=== PATIENT | male | born 1965 ===

== ENCOUNTER 2018-05-27 21:56 | Observation (INO) | payer OTHER ==
[2018-05-27 22:08] VITALS: BMI 23.8
[2018-05-27] MEDS ORDERED: Sodium Chloride 0.9% 1,000 ML IV STA ×2 (22:36→23:08)
[2018-05-27 22:44] LABS: VENOUS BLOOD GAS BASE EXCESS -3.8 mmol/L (0.0-2.0); VENOUS BLOOD GAS PO2 72 mm/Hg (30-55); VENOUS BLOOD PH 7.48 (7.32-7.43)
[2018-05-27 22:46] LABS: BASO # 0.02 K/mm3 (0.0-2.0); BASO % 0.2 % (0.0-3.0); EOS # 0.1 (0.0-0.7); EOS % 1.4 % (1.5-5.0); GRAN # 5.14 (1.4-6.5); GRAN % 61.4 % (50.0-68.0); HEMOGLOBIN 14.6 g/dL (14.0-18.0); LYMPH # 2.7 (1.2-3.4); LYMPH % 32.3 % (22.0-35.0); MEAN CORPUSCULAR HEMOGLOBIN 29.8 pg (25.0-35.0); MEAN CORPUSCULAR HGB CONC 36.8 g/dl (31.0-37.0); MEAN PLATELET VOLUME 11.6 fl (7.0-11.0); MONO # 0.4 (0.1-0.6); MONO % 4.7 % (1.0-6.0); RBC 4.9 10^6/uL (3.5-6.1); RED CELL DISTRIBUTION WIDTH 11.7 % (11.5-14.5); WHITE BLOOD COUNT 8.4 10^3/uL (4.5-11.0)
--- NOTE | 2018-05-27 22:52 | ED PDOC ---
Arrival/HPI - General Chief Complaint: GI Problem Time Seen by Provider: 05/27/18 22:09 Historian: Patient - History of Present Illness Narrative History of Present Illness (Text): 05/27/18 22:49 52 year old male, whose past medical history includes diabetes, presents to the emergency department complaining of constipation and rectal bleeding that began today. Patient denies being on any blood thinners. Patient denies any fever, chills, chest pain, shortness of breath, nausea, vomiting, diarrhea, urinary symptoms, back pain, neck pain, headache, dizziness, or any other complaints. PMD: None Symptom Onset: Gradual Symptom Course: Unchanged Severity Level: Moderate Activities at Onset: Rest Context: Home Past Medical History - Provider Review Nursing Documentation Reviewed: Yes - Infectious Disease Hx of Infectious Diseases: None - Cardiac Hx Cardiac Disorders: No - Pulmonary Hx Respiratory Disorders: No - Neurological Hx Neurological Disorder: No - HEENT Hx HEENT Disorder: No - Renal Hx Renal Disorder: No - Endocrine/Metabolic Hx Endocrine Disorders: Yes Hx Diabetes Mellitus Type 2: Yes (niddm) - Hematological/Oncological Hx Blood Disorders: No - Integumentary Hx Dermatological Disorder: No - Musculoskeletal/Rheumatological Hx Musculoskeletal Disorders: No - Gastrointestinal Hx Gastrointestinal Disorders: No - Genitourinary/Gynecological Hx Genitourinary Disorders: No - Psychiatric Hx Psychophysiologic Disorder: No Hx Substance Use: No - Anesthesia Hx Anesthesia: No - Suicidal Assessment Feels Threatened In Home Enviroment: No Family/Social History - Physician Review Nursing Documentation Reviewed: Yes Family/Social History: No Known Family HX Smoking Status: Light Smoker < 10 Cigarettes Daily Hx Alcohol Use: Yes Hx Substance Use: No Hx Substance Use Treatment: No Allergies/Home Meds Allergies/Adverse Reactions: Allergies No Known Allergies Allergy (Verified 04/19/15 18:30) Review of Systems - Physician Review All systems were reviewed & negative as marked: Yes - Review of Systems Constitutional: absent: Fevers, Other (Chills) Respiratory: absent: SOB Cardiovascular: absent: Chest Pain Gastrointestinal: Constipation, Hematochezia. absent: Abdominal Pain, Diarrhea, Nausea Musculoskeletal: absent: Back Pain, Neck Pain Neurological: absent: Headache, Dizziness Physical Exam Vital Signs Reviewed: Yes Vital Signs Temp Pulse Resp BP Pulse Ox 05/27/18 22:07 97.9 F 128 H 20 133/87 98 Temperature: Afebrile Blood Pressure: Normal Pulse: Tachycardic Respiratory Rate: Normal Appearance: Positive for: Well-Appearing, Non-Toxic, Comfortable Pain Distress: None Mental Status: Positive for: Alert and Oriented X 3 - Systems Exam Head: Present: Atraumatic, Normocephalic Pupils: Present: PERRL Extroacular Muscles: Present: EOMI Conjunctiva: Present: Normal Mouth: Present: Moist Mucous Membranes Neck: Present: Normal Range of Motion Respiratory/Chest: Present: Clear to Auscultation, Good Air Exchange. No: Respiratory Distress, Accessory Muscle Use Cardiovascular: Present: Tachycardic. No: Murmurs Abdomen: Present: Tenderness (to palpation). No: Distention, Peritoneal Signs Rectal: Present: Hemorrhoids ((+)Palpable internal hemmorrhoid at 6 o'clock (- )No external thrombosed hemmorrhoids ), Other (Painful insertion to finger within rectal volt. Guaiac test positive) Back: Present: Normal Inspection Upper Extremity: Present: Normal Inspection. No: Cyanosis, Edema Lower Extremity: Present: Normal Inspection. No: Edema Neurological: Present: GCS=15, CN II-XII Intact, Speech Normal Skin: Present: Warm, Dry, Normal Color. No: Rashes Psychiatric: Present: Alert, Oriented x 3, Normal Insight, Normal Concentration Medical Decision Making ED Course and Treatment: 05/27/18 22:49 Impression: 52 year old male presents complaining of constipation and rectal bleeding that began today. Differential Diagnosis included but are not limited to: --Rectal bleeding Plan: -- Labs -- VBG -- Chest X-ray -- Urinalysis -- IV Fluids -- Reassess and disposition Progress Notes: 05/27/18 23:13 Case discussed with medical records assistant and Dr. Morgan (house staff)who is aware and agrees with the plan. Accepts patient into hospitalist service. - Lab Interpretations Lab Results: 05/27/18 22:39 05/27/18 22:39 Lab Results 05/27/18 22:39: pO2 72 H, VBG pH 7.48 H, VBG pCO2 24.0 L, VBG HCO3 17.9 L, VBG Total CO2 18.6 L, VBG O2 Sat (Calc) 97.4 H, VBG Base Excess -3.8 L, VBG Potassium 3.6, Sodium 136.0, Chloride 101.0, Glucose 445 H*, Lactate 3.7 H, FiO2 21.0, Venous Blood Potassium 3.6 05/27/18 22:39: Sodium 136, Chloride 104, Potassium 3.6, Carbon Dioxide 17 L, Anion Gap 18, BUN 15, Creatinine 0.8, Est GFR ( Amer) > 60, Est GFR (Non- Af Amer) > 60, Random Glucose 433 H* D, Calcium 9.3, Total Bilirubin 0.6, AST 31, ALT 14, Alkaline Phosphatase 125, Troponin I < 0.01, Total Protein 7.7, Albumin 4.3, Globulin 3.5, Albumin/Globulin Ratio 1.2, Lipase 144 05/27/18 22:39: PT 10.8, INR 0.95, APTT 25.2 05/27/18 22:39: WBC 8.4, RBC 4.90, Hgb 14.6, Hct 39.7 L, MCV 81.0, MCH 29.8, MCHC 36.8, RDW 11.7, Plt Count 193, MPV 11.6 H, Gran % 61.4, Lymph % (Auto) 32.3, [place] % (Auto) 4.7, Eos % (Auto) 1.4 L, Baso % (Auto) 0.2, Gran # 5.14, Lymph # (Auto) 2.7, [place] # (Auto) 0.4, Eos # (Auto) 0.1, Baso # (Auto) 0.02 05/27/18 22:30: Blood Type O POSITIVE, Antibody Screen Negative, BBK History Checked No verified bt I have reviewed the lab results: Yes - RAD Interpretation Narrative RAD Interpretations (Text): 05/27/18 23:00 CXR Impression: As read by me, no cardiomegaly, no infiltrates noted Radiology Orders: 05/27/18 22:35 CHEST PORTABLE [RAD] Stat Cell Operation Supervisor: ED Physician - EKG Interpretation EKG Interpretation (Text): 05/27/18 22:09 EKG shows Sinus Tachycardia at [address] depressions. Interpreted by me. Interpreted by ED Physician: Yes Type: 12 lead EKG - Medication Orders Current Medication Orders: Sodium Chloride (Sodium Chloride 0.9%) 1,000 mls @ 999 mls/hr IV .Q1H1M STA Stop: 05/27/18 23:36 Last Admin: 05/27/18 22:43 Dose: 999 mls/hr eMAR Start Stop Document 05/27/18 22:43 CNR (Rec: 05/27/18 22:43 CNR [id number]) Intravenous Solution Start Date 05/27/18 Start Time 21:43 End Date 05/27/18 End time 22:43 Total Infusion Time 60 - Scribe Statement The provider has reviewed the documentation as recorded by the Jake Lo Provider Scribe Attestation: All medical record entries made by the Jake were at my direction and personally dictated by me. I have reviewed the chart and agree that the record accurately reflects my personal performance of the history, physical exam, medical decision making, and the department course for this patient. I have also personally directed, reviewed, and agree with the discharge instructions and disposition. Disposition/Present on Arrival - Present on Arrival Any Indicators Present on Arrival: No History of DVT/PE: No History of Uncontrolled Diabetes: No Urinary Catheter: No History of Decub. Ulcer: No History Surgical Site Infection Following: None - Disposition Have Diagnosis and Disposition been Completed?: Yes Diagnosis: Rectal bleed, Hyperglycemia Disposition: HOSPITALIZED Disposition Time: 23:13 Patient Plan: Admission Condition: GOOD
[2018-05-27 22:53] LABS: INR 0.95; PARTIAL THROMBOPLASTIN TIME 25.2 Seconds (25.1-36.5); PROTHROMBIN TIME 10.8 SECONDS (9.4-12.5)
[2018-05-27 23:06] LABS: ALB/GLOB RATIO 1.2 (1.1-1.8); ALBUMIN 4.3 g/dL (3.0-4.8); ALT/SGPT 14 U/L (7-56); AST/SGOT 31 U/L (17-59); BLOOD UREA NITROGEN 15 mg/dL (7-21); CALCIUM 9.3 mg/dL (8.4-10.5); GFR NON-AFRICAN AMERICAN > 60; LIPASE 144 U/L (23-300)
[2018-05-27] MEDS ORDERED: Insulin Regular 1 UNITS/0.01 ML ML SC STA (23:07)
[2018-05-27 23:10] LABS: TROPONIN I < 0.01 ng/mL
--- NOTE | 2018-05-28 01:24 | CP.PCM.HP ---
<Dayne Ricardo - Last Filed: 05/28/18 05:24> History of Present Illness - History of Present Illness History of Present Illness: Dayne Ricardo DO PGY1. H&P Hospitalist Service, Dr Eddie Lopez: bleeding per rectum 52 y/o male with PMH of diabetes presents to ED with one episode of bright blood per rectum for the first time yesterday which was moderate amount. He denied constipation, change of bowel movement, N/V/D, GERD, NSAID use, constitutional symptoms, weight changes, history of hemorrhoids or any GI disease. He never had colonscopy or EGD in the past with no history of cancer. Patient admits to being diagnosed with DM few years ago but he did not take any meds for it. He denied polyphagia, polydipsea, excessive thirst, numbness/tingling in his extremities, muscle weakness. He admits to visual changes and having poor circulation in b/l lower extremity. He can walk for an hour without having calf muscle pain or SOB. He denied CP, SOB, palpitations, headache, leg swelling, exercise intolerance or dyspnea. 12 point ROS reviewed with pertinent positives as above PMH: HTN, DM, HLD, memory loss PSH: none SH: former smoker, denied alcohol or drug use FH: father and mother had diabetes All:NKDA Meds: none Present on Admission - Present on Admission Any Indicators Present on Admission: No Past Patient History - Infectious Disease Hx of Infectious Diseases: None - Past Social History Smoking Status: Light Smoker < 10 Cigarettes Daily - CARDIAC Hx Cardiac Disorders: No - PULMONARY Hx Respiratory Disorders: No - NEUROLOGICAL Hx Neurological Disorder: No - HEENT Hx HEENT Problems: No - RENAL Hx Chronic Kidney Disease: No - ENDOCRINE/METABOLIC Hx Endocrine Disorders: Yes Hx Diabetes Mellitus Type 2: Yes (niddm) - HEMATOLOGICAL/ONCOLOGICAL Hx Blood Disorders: No - INTEGUMENTARY Hx Dermatological Problems: No - MUSCULOSKELETAL/RHEUMATOLOGICAL Hx Musculoskeletal Disorders: No - GASTROINTESTINAL Hx Gastrointestinal Disorders: No - GENITOURINARY/GYNECOLOGICAL Hx Genitourinary Disorders: No - PSYCHIATRIC Hx Psychophysiologic Disorder: No - SURGICAL HISTORY Hx Surgeries: No - ANESTHESIA Hx Anesthesia: No Meds Allergies/Adverse Reactions: Allergies Allergy/AdvReac Type Severity Reaction Status Date / Time No Known Allergies Allergy Verified 04/19/15 18:30 Physical Exam - Constitutional Appears: Well, Non-toxic, No Acute Distress - Head Exam Head Exam: ATRAUMATIC, NORMAL INSPECTION, NORMOCEPHALIC - Eye Exam Eye Exam: EOMI, Normal appearance, PERRL Pupil Exam: NORMAL ACCOMODATION, PERRL - ENT Exam ENT Exam: Mucous Membranes Moist, Normal Exam Additional comments: multiple teeth loss - Neck Exam Neck exam: Positive for: Normal Inspection - Respiratory Exam Respiratory Exam: Clear to Auscultation Bilateral, NORMAL BREATHING PATTERN - Cardiovascular Exam Cardiovascular Exam: REGULAR RHYTHM, +S1, +S2. absent: Gallop, Rubs - GI/Abdominal Exam GI & Abdominal Exam: Normal Bowel Sounds, Soft. absent: Tenderness - Extremities Exam Extremities exam: Positive for: normal capillary refill, normal inspection, pedal pulses present - Back Exam Back exam: FULL ROM, NORMAL INSPECTION. absent: CVA tenderness (L), CVA tenderness (R), vertebral tenderness - Neurological Exam Neurological exam: Alert, CN II-XII Intact, Oriented x3, Reflexes Normal - Psychiatric Exam Psychiatric exam: Normal Affect, Normal Mood - Skin Skin Exam: Dry, Intact, Normal Color, Warm Results - Vital Signs Recent Vital Signs: Last Vital Signs Temp 97.9 F 05/27/18 22:07 Pulse 98 H 05/28/18 00:03 Resp 16 05/28/18 00:03 BP 126/77 05/28/18 00:03 Pulse Ox 97 05/28/18 00:03 - Labs Result Diagrams: 05/27/18 22:39 05/27/18 22:39 Labs: Laboratory Results - last 24 hr 05/27/18 05/27/18 05/27/18 22:39 22:39 22:39 WBC 8.4 RBC 4.90 Hgb 14.6 Hct 39.7 L MCV 81.0 MCH 29.8 MCHC 36.8 RDW 11.7 Plt Count 193 MPV 11.6 H Gran % 61.4 Lymph % (Auto) 32.3 [place] % (Auto) 4.7 Eos % (Auto) 1.4 L Baso % (Auto) 0.2 Gran # 5.14 Lymph # (Auto) 2.7 [place] # (Auto) 0.4 Eos # (Auto) 0.1 Baso # (Auto) 0.02 PT 10.8 INR 0.95 APTT 25.2 pO2 VBG pH VBG pCO2 VBG HCO3 VBG Total CO2 VBG O2 Sat (Calc) VBG Base Excess VBG Potassium Sodium 136 Chloride 104 Glucose Lactate FiO2 Potassium 3.6 Carbon Dioxide 17 L Anion Gap 18 BUN 15 Creatinine 0.8 Est GFR ( Amer) > 60 Est GFR (Non-Af Amer) > 60 Random Glucose 433 H* D Calcium 9.3 Total Bilirubin 0.6 AST 31 ALT 14 Alkaline Phosphatase 125 Troponin I < 0.01 Total Protein 7.7 Albumin 4.3 Globulin 3.5 Albumin/Globulin Ratio 1.2 Lipase 144 Venous Blood Potassium 05/27/18 22:39 WBC RBC Hgb Hct MCV MCH MCHC RDW Plt Count MPV Gran % Lymph % (Auto) [place] % (Auto) Eos % (Auto) Baso % (Auto) Gran # Lymph # (Auto) [place] # (Auto) Eos # (Auto) Baso # (Auto) PT INR APTT pO2 72 H VBG pH 7.48 H VBG pCO2 24.0 L VBG HCO3 17.9 L VBG Total CO2 18.6 L VBG O2 Sat (Calc) 97.4 H VBG Base Excess -3.8 L VBG Potassium 3.6 Sodium 136.0 Chloride 101.0 Glucose 445 H* Lactate 3.7 H FiO2 21.0 Potassium Carbon Dioxide Anion Gap BUN Creatinine Est GFR ( Amer) Est GFR (Non-Af Amer) Random Glucose Calcium Total Bilirubin AST ALT Alkaline Phosphatase Troponin I Total Protein Albumin Globulin Albumin/Globulin Ratio Lipase Venous Blood Potassium 3.6 Assessment & Plan - Assessment and Plan (Free Text) Assessment: 52 y/o male with PMH of diabetes presents to ED with one episode of bright blood per rectum. He was found to have hyperglycemia of 433 and tachycardia. Patient admitted to telemetry for observation. Plan: Bright red Bleeding per rectum: -first episode, no h/o constipation, hemodynamically stable -H/H 14.6/39.7 continue monitoring -f/u iron studies, folate, B12 -surgery consulted -GI consulted Hyperglycemia: -remote diagnosis of DM, not on meds -BG 445 on admission -VBG: pH 7.48 CO2 24 HCO3 17 -accucheck -ISS low -f/u Hgb A1C, lipid panel, TSH, UA -euglycemic control Prophylaxis: -GI ppx: protonix -DVT ppx: SCD Case reviewed and paln discussed with Dr Eddie Ricardo, DO PGY1 <Ban Morgan - Last Filed: 05/30/18 14:26> Results - Vital Signs Recent Vital Signs: Last Vital Signs Temp 97.9 F 05/29/18 12:00 Pulse 80 05/29/18 12:00 Resp 18 05/29/18 12:00 BP 122/82 05/29/18 12:00 Pulse Ox 100 05/29/18 05:45 - Labs Result Diagrams: 05/29/18 06:00 05/29/18 06:00 Attending/Attestation - Attestation I have personally seen and examined this patient.: Yes I have fully participated in the care of the patient.: Yes I have reviewed all pertinent clinical information: Yes
[2018-05-28] MEDS ORDERED: Levalbuterol 0.63 MG/3 ML Inhal Soln UD IH PRN (02:33)
[2018-05-28] MEDS ORDERED: Pneumococcal 23-Valent Vaccine IM ONE (02:57)
[2018-05-28 03:16] LABS: VENOUS BLOOD GAS BASE EXCESS -1.1 mmol/L (0.0-2.0); VENOUS BLOOD GAS PO2 64 mm/Hg (30-55)
[2018-05-28] MEDS: Pantoprazole 40 mg EC Tab PO SCH (05:29)
[2018-05-28] MEDS ORDERED: Dextrose 50% SYRINGE Inj (50 ml) IV PRN (06:34)
[2018-05-28] MEDS ORDERED: Sodium Chloride 0.9% 1,000 ML IV SCH (06:45)
[2018-05-28] MEDS ORDERED: Insulin Reg-LOW-Coverage SC SCH (07:30)
--- NOTE | 2018-05-28 07:47 | CP.PCM.CON ---
History of Present Illness - History of Present Illness History of Present Illness: 52M with PMH of HTN, DM, hyperlipidemia, [place] to [facility] with complaints of bright red blood per rectum. Patient states first time it occured was yesterday. Patient reports being constipated and had to strain to have BM. Patient reports noting blood streaks on toilet paper. 30 minutes afterwards patient states he went back to the bathroom and had a large bloody bowel movement. He states this is the first time he experiences this. Patient has never had a colonoscopy/endoscopy. At time of examination he denied dizziness, chest pain, palpitations, SOB, nausea/vomiting, diarrhea, dysuria. PMH: HTN, DM, HLD, PSH: denies SH: former smoker, denied EtOH use or illicit drug use All: NKDA Review of Systems - Review of Systems Review of Systems: 10 pt ROS negative except as stated in HPI Past Patient History - Infectious Disease Hx of Infectious Diseases: None - Past Social History Smoking Status: Light Smoker < 10 Cigarettes Daily - CARDIAC Hx Cardiac Disorders: No - PULMONARY Hx Respiratory Disorders: No - NEUROLOGICAL Hx Neurological Disorder: No - HEENT Hx HEENT Problems: No - RENAL Hx Chronic Kidney Disease: No - ENDOCRINE/METABOLIC Hx Endocrine Disorders: Yes Hx Diabetes Mellitus Type 2: Yes (niddm) - HEMATOLOGICAL/ONCOLOGICAL Hx Blood Disorders: No - INTEGUMENTARY Hx Dermatological Problems: No - MUSCULOSKELETAL/RHEUMATOLOGICAL Hx Musculoskeletal Disorders: No - GASTROINTESTINAL Hx Gastrointestinal Disorders: No - GENITOURINARY/GYNECOLOGICAL Hx Genitourinary Disorders: No - PSYCHIATRIC Hx Psychophysiologic Disorder: No - SURGICAL HISTORY Hx Surgeries: No - ANESTHESIA Hx Anesthesia: No Meds Allergies/Adverse Reactions: Allergies Allergy/AdvReac Type Severity Reaction Status Date / Time No Known Allergies Allergy Verified 04/19/15 18:30 - Medications Medications: Current Medications Dextrose (Dextrose 50% Inj) 0 ml IV STAT PRN; Protocol PRN Reason: Hypoglycemia Protocol Dextrose (Dextrose 5% In Water 1000 Ml) 1,000 mls @ 0 mls/hr IV .Q0M PRN; Protocol PRN Reason: Hypoglycemia Protocol Sodium Chloride (Sodium Chloride 0.9%) 1,000 mls @ 150 mls/hr IV .Q6H40M SAIGE Insulin Human Regular (Humulin R Low) 0 units SC Q6H SAIGE; Protocol Levalbuterol HCl (Xopenex) 0.63 mg IH [id number] PRN PRN Reason: Shortness of Breath Pantoprazole Sodium (Protonix Ec Tab) 40 mg PO 0600 SAIGE Last Admin: 05/28/18 05:29 Dose: 40 mg Physical Exam - Constitutional Appears: No Acute Distress - Head Exam Head Exam: NORMOCEPHALIC - Eye Exam Eye Exam: EOMI, Normal appearance - ENT Exam ENT Exam: Mucous Membranes Moist - Respiratory Exam Respiratory Exam: NORMAL BREATHING PATTERN - Cardiovascular Exam Cardiovascular Exam: +S1, +S2 - GI/Abdominal Exam GI & Abdominal Exam: Soft. absent: Distended, Firm, Guarding, Rebound, Rigid, Tenderness - Rectal Exam Rectal Exam: absent: Hemorrhoids Additional comments: No mass palpated Small clots in rectal vault No external/internal hemorrhoids palpated - Neurological Exam Neurological exam: Alert, Oriented x3 - Psychiatric Exam Psychiatric exam: Normal Mood - Skin Skin Exam: Dry, Intact, Warm Results - Vital Signs Recent Vital Signs: Last Vital Signs Temp 98.7 F 05/28/18 06:37 Pulse 88 05/28/18 06:37 Resp 20 05/28/18 06:37 BP 104/73 05/28/18 06:37 Pulse Ox 98 05/28/18 06:37 - Labs Result Diagrams: 05/27/18 22:39 05/27/18 22:39 Labs: Laboratory Results - last 24 hr 05/27/18 05/27/18 05/27/18 22:30 22:39 22:39 WBC 8.4 RBC 4.90 Hgb 14.6 Hct 39.7 L MCV 81.0 MCH 29.8 MCHC 36.8 RDW 11.7 Plt Count 193 MPV 11.6 H Gran % 61.4 Lymph % (Auto) 32.3 [place] % (Auto) 4.7 Eos % (Auto) 1.4 L Baso % (Auto) 0.2 Gran # 5.14 Lymph # (Auto) 2.7 [place] # (Auto) 0.4 Eos # (Auto) 0.1 Baso # (Auto) 0.02 PT 10.8 INR 0.95 APTT 25.2 pO2 VBG pH VBG pCO2 VBG HCO3 VBG Total CO2 VBG O2 Sat (Calc) VBG Base Excess VBG Potassium Sodium Chloride Glucose Lactate FiO2 Potassium Carbon Dioxide Anion Gap BUN Creatinine Est GFR ( Amer) Est GFR (Non-Af Amer) POC Glucose (mg/dL) Random Glucose Calcium Total Bilirubin AST ALT Alkaline Phosphatase Troponin I Total Protein Albumin Globulin Albumin/Globulin Ratio Lipase Venous Blood Potassium Blood Type O POSITIVE Blood Type Confirm Antibody Screen Negative BBK History Checked No verified bt 05/27/18 05/27/18 05/28/18 22:39 22:39 00:00 WBC RBC Hgb Hct MCV MCH MCHC RDW Plt Count MPV Gran % Lymph % (Auto) [place] % (Auto) Eos % (Auto) Baso % (Auto) Gran # Lymph # (Auto) [place] # (Auto) Eos # (Auto) Baso # (Auto) PT INR APTT pO2 72 H VBG pH 7.48 H VBG pCO2 24.0 L VBG HCO3 17.9 L VBG Total CO2 18.6 L VBG O2 Sat (Calc) 97.4 H VBG Base Excess -3.8 L VBG Potassium 3.6 Sodium 136 136.0 Chloride 104 101.0 Glucose 445 H* Lactate 3.7 H FiO2 21.0 Potassium 3.6 Carbon Dioxide 17 L Anion Gap 18 BUN 15 Creatinine 0.8 Est GFR ( Amer) > 60 Est GFR (Non-Af Amer) > 60 POC Glucose (mg/dL) 299 H Random Glucose 433 H* D Calcium 9.3 Total Bilirubin 0.6 AST 31 ALT 14 Alkaline Phosphatase 125 Troponin I < 0.01 Total Protein 7.7 Albumin 4.3 Globulin 3.5 Albumin/Globulin Ratio 1.2 Lipase 144 Venous Blood Potassium 3.6 Blood Type Blood Type Confirm Antibody Screen BBK History Checked 05/28/18 05/28/18 03:00 03:00 WBC RBC Hgb Hct MCV MCH MCHC RDW Plt Count MPV Gran % Lymph % (Auto) [place] % (Auto) Eos % (Auto) Baso % (Auto) Gran # Lymph # (Auto) [place] # (Auto) Eos # (Auto) Baso # (Auto) PT INR APTT pO2 64 H VBG pH 7.40 VBG pCO2 38.0 L VBG HCO3 23.5 VBG Total CO2 24.7 VBG O2 Sat (Calc) 94.3 H VBG Base Excess -1.1 L VBG Potassium 3.8 Sodium 138.0 Chloride 109.0 H Glucose 183 H Lactate 1.3 FiO2 21.0 Potassium Carbon Dioxide Anion Gap BUN Creatinine Est GFR ( Amer) Est GFR (Non-Af Amer) POC Glucose (mg/dL) Random Glucose Calcium Total Bilirubin AST ALT Alkaline Phosphatase Troponin I Total Protein Albumin Globulin Albumin/Globulin Ratio Lipase Venous Blood Potassium 3.8 Blood Type Blood Type Confirm O POSITIVE Antibody Screen BBK History Checked Assessment & Plan - Assessment and Plan (Free Text) Assessment: 52M with BRBPR likely 2/2 diverticulosis Plan: NPO IVF F/u CT Abd&Pelvis Recommend GI consult Monitor H/H Monitor BM Further recs per Dr. Devonte Drake PGY3
[2018-05-28] MEDS: Insulin Reg-LOW-Coverage SC SCH ×3 (08:07→17:46)
[2018-05-28] MEDS ORDERED: Iohexol 240 (50 ml) ONE (08:11)
[2018-05-28 09:06] LABS: BASO # 0.01 K/mm3 (0.0-2.0); BASO % 0.2 % (0.0-3.0); EOS # 0.1 (0.0-0.7); EOS % 1.5 % (1.5-5.0); GRAN # 3.6 (1.4-6.5); GRAN % 55.5 % (50.0-68.0); HEMOGLOBIN 12.2 g/dL (14.0-18.0); LYMPH # 2.4 (1.2-3.4); LYMPH % 37.3 % (22.0-35.0); MEAN CELL VOLUME 81.8 fl (80.0-105.0); MEAN CORPUSCULAR HEMOGLOBIN 28.8 pg (25.0-35.0); MEAN CORPUSCULAR HGB CONC 35.3 g/dl (31.0-37.0); MEAN PLATELET VOLUME 11.6 fl (7.0-11.0); MONO # 0.4 (0.1-0.6); MONO % 5.5 % (1.0-6.0); RBC 4.23 10^6/uL (3.5-6.1); RED CELL DISTRIBUTION WIDTH 11.9 % (11.5-14.5); WHITE BLOOD COUNT 6.5 10^3/uL (4.5-11.0)
[2018-05-28 09:13] LABS: IRON 104 ug/dL (45-180)
[2018-05-28 09:21] LABS: ALB/GLOB RATIO 1.2 (1.1-1.8); ALBUMIN 3.5 g/dL (3.0-4.8); ALT/SGPT 26 U/L (7-56); AST/SGOT 17 U/L (17-59); BLOOD UREA NITROGEN 11 mg/dL (7-21); CALCIUM 8.4 mg/dL (8.4-10.5); GFR NON-AFRICAN AMERICAN > 60; HDL CHOLESTEROL 29 mg/dL (29-60)
[2018-05-28 09:22] LABS: LDL CHOLESTEROL 100 mg/dL (0-129)
[2018-05-28 09:23] LABS: % IRON SATURATION 33 % (20-55); TOTAL IRON BINDING CAPACITY 318 ug/dL (261-462)
--- NOTE | 2018-05-28 09:23 | CARD ---
APPROVED REPORT Date of service: 05/27/2018 EKG Measurement Heart [id number] <Conclusion> Sinus tachycardia Otherwise normal ECG
--- NOTE | 2018-05-28 09:43 | CP.PCM.CON ---
<LulSlimike - Last Filed: 05/28/18 09:37> History of Present Illness - History of Present Illness History of Present Illness: PGY-4 GI Fellow Consult Note Pt is a 52 yo Hisp Male with DM (not on meds), HTN, HLD presenting with bright red blood per rectum. He states that he was in his normal state of health when on 05/27 he passed moderate amount of bright red blood per rectum. States that he has never had this before which concerned him; therefore, he presented for further evaluation. He denied any abd pain, N/V, weight loss, dysphagia, family history of GI problems/malignancy, no blood thinners, nor any prior endoscopic evaluation. In the ED, he was found to have Hgb 14.6 (no baseline) and glucose of >400; therefore, admitted for further evaluation. 12 point ROS negative other than stated above MHx: HTN, DM, HLD SurgHx: Denied Meds: None as OP FamHx: Denied GI probs/CRC SocHx: former smoker, denied EtOH use or illicit drug use All: NKDA Past Patient History - Infectious Disease Hx of Infectious Diseases: None - Past Social History Smoking Status: Light Smoker < 10 Cigarettes Daily - CARDIAC Hx Cardiac Disorders: No - PULMONARY Hx Respiratory Disorders: No - NEUROLOGICAL Hx Neurological Disorder: No - HEENT Hx HEENT Problems: No - RENAL Hx Chronic Kidney Disease: No - ENDOCRINE/METABOLIC Hx Endocrine Disorders: Yes Hx Diabetes Mellitus Type 2: Yes (niddm) - HEMATOLOGICAL/ONCOLOGICAL Hx Blood Disorders: No - INTEGUMENTARY Hx Dermatological Problems: No - MUSCULOSKELETAL/RHEUMATOLOGICAL Hx Musculoskeletal Disorders: No - GASTROINTESTINAL Hx Gastrointestinal Disorders: No - GENITOURINARY/GYNECOLOGICAL Hx Genitourinary Disorders: No - PSYCHIATRIC Hx Psychophysiologic Disorder: No - SURGICAL HISTORY Hx Surgeries: No - ANESTHESIA Hx Anesthesia: No Meds Allergies/Adverse Reactions: Allergies Allergy/AdvReac Type Severity Reaction Status Date / Time No Known Allergies Allergy Verified 04/19/15 18:30 - Medications Medications: Current Medications Dextrose (Dextrose 50% Inj) 0 ml IV STAT PRN; Protocol PRN Reason: Hypoglycemia Protocol Dextrose (Dextrose 5% In Water 1000 Ml) 1,000 mls @ 0 mls/hr IV .Q0M PRN; Protocol PRN Reason: Hypoglycemia Protocol Sodium Chloride (Sodium Chloride 0.9%) 1,000 mls @ 150 mls/hr IV .Q6H40M [facility] Insulin Human Regular (Humulin R Low) 0 units SC Q6H [facility]; Protocol Last Admin: 05/28/18 08:07 Dose: Not Given Levalbuterol HCl (Xopenex) 0.63 mg IH [id number] PRN PRN Reason: Shortness of Breath Pantoprazole Sodium (Protonix Ec Tab) 40 mg PO 0600 [facility] Last Admin: 05/28/18 05:29 Dose: 40 mg Physical Exam - Constitutional Appears: Well, No Acute Distress - Head Exam Head Exam: ATRAUMATIC, NORMAL INSPECTION - Eye Exam Eye Exam: EOMI. absent: Scleral icterus - ENT Exam ENT Exam: Mucous Membranes Moist. absent: Mucous Membranes Dry - Respiratory Exam Respiratory Exam: Clear to Auscultation Bilateral. absent: Accessory Muscle Use, Respiratory Distress - Cardiovascular Exam Cardiovascular Exam: REGULAR RHYTHM, RRR - GI/Abdominal Exam GI & Abdominal Exam: Normal Bowel Sounds, Soft. absent: Bruit, Diminished Bowel Sounds, Distended, Firm, Guarding, Mass, Organomegaly, Pulsatile Mass, Rebound, Rigid, Tenderness - Rectal Exam Rectal Exam: NORMAL INSPECTION Additional comments: No stool visualized on JP, no obvious masses, pinkish red liquid on tissue. - Extremities Exam Extremities exam: Positive for: normal inspection. Negative for: pedal edema - Neurological Exam Neurological exam: Alert, CN II-XII Intact - Psychiatric Exam Psychiatric exam: Normal Affect, Normal Mood - Skin Skin Exam: Dry, Warm Results - Vital Signs Recent Vital Signs: Last Vital Signs Temp 98.7 F 05/28/18 06:37 Pulse 88 05/28/18 06:37 Resp 20 05/28/18 06:37 BP 104/73 05/28/18 06:37 Pulse Ox 98 05/28/18 06:37 - Labs Result Diagrams: 05/28/18 07:00 05/28/18 07:00 Labs: Laboratory Results - last 24 hr 05/27/18 05/27/18 05/27/18 22:30 22:39 22:39 WBC 8.4 RBC 4.90 Hgb 14.6 Hct 39.7 L MCV 81.0 MCH 29.8 MCHC 36.8 RDW 11.7 Plt Count 193 MPV 11.6 H Gran % 61.4 Lymph % (Auto) 32.3 [place] % (Auto) 4.7 Eos % (Auto) 1.4 L Baso % (Auto) 0.2 Gran # 5.14 Lymph # (Auto) 2.7 [place] # (Auto) 0.4 Eos # (Auto) 0.1 Baso # (Auto) 0.02 PT 10.8 INR 0.95 APTT 25.2 pO2 VBG pH VBG pCO2 VBG HCO3 VBG Total CO2 VBG O2 Sat (Calc) VBG Base Excess VBG Potassium Sodium Chloride Glucose Lactate FiO2 Potassium Carbon Dioxide Anion Gap BUN Creatinine Est GFR ( Amer) Est GFR (Non-Af Amer) POC Glucose (mg/dL) Random Glucose Calcium Phosphorus Magnesium Iron TIBC % Saturation Total Bilirubin AST ALT Alkaline Phosphatase Troponin I Total Protein Albumin Globulin Albumin/Globulin Ratio Triglycerides Cholesterol LDL Cholesterol Direct HDL Cholesterol Lipase Venous Blood Potassium Blood Type O POSITIVE Blood Type Confirm Antibody Screen Negative BBK History Checked No verified bt 05/27/18 05/27/18 05/28/18 22:39 22:39 00:00 WBC RBC Hgb Hct MCV MCH MCHC RDW Plt Count MPV Gran % Lymph % (Auto) [place] % (Auto) Eos % (Auto) Baso % (Auto) Gran # Lymph # (Auto) [place] # (Auto) Eos # (Auto) Baso # (Auto) PT INR APTT pO2 72 H VBG pH 7.48 H VBG pCO2 24.0 L VBG HCO3 17.9 L VBG Total CO2 18.6 L VBG O2 Sat (Calc) 97.4 H VBG Base Excess -3.8 L VBG Potassium 3.6 Sodium 136 136.0 Chloride 104 101.0 Glucose 445 H* Lactate 3.7 H FiO2 21.0 Potassium 3.6 Carbon Dioxide 17 L Anion Gap 18 BUN 15 Creatinine 0.8 Est GFR ( Amer) > 60 Est GFR (Non-Af Amer) > 60 POC Glucose (mg/dL) 299 H Random Glucose 433 H* D Calcium 9.3 Phosphorus Magnesium Iron TIBC % Saturation Total Bilirubin 0.6 AST 31 ALT 14 Alkaline Phosphatase 125 Troponin I < 0.01 Total Protein 7.7 Albumin 4.3 Globulin 3.5 Albumin/Globulin Ratio 1.2 Triglycerides Cholesterol LDL Cholesterol Direct HDL Cholesterol Lipase 144 Venous Blood Potassium 3.6 Blood Type Blood Type Confirm Antibody Screen BBK History Checked 05/28/18 05/28/1818 03:00 03:00 07:00 WBC 6.5 D RBC 4.23 Hgb 12.2 L D Hct 34.6 L MCV 81.8 MCH 28.8 MCHC 35.3 RDW 11.9 Plt Count 149 MPV 11.6 H Gran % 55.5 Lymph % (Auto) 37.3 H [place] % (Auto) 5.5 Eos % (Auto) 1.5 Baso % (Auto) 0.2 Gran # 3.60 Lymph # (Auto) 2.4 [place] # (Auto) 0.4 Eos # (Auto) 0.1 Baso # (Auto) 0.01 PT INR APTT pO2 64 H VBG pH 7.40 VBG pCO2 38.0 L VBG HCO3 23.5 VBG Total CO2 24.7 VBG O2 Sat (Calc) 94.3 H VBG Base Excess -1.1 L VBG Potassium 3.8 Sodium 138.0 Chloride 109.0 H Glucose 183 H Lactate 1.3 FiO2 21.0 Potassium Carbon Dioxide Anion Gap BUN Creatinine Est GFR ( Amer) Est GFR (Non-Af Amer) POC Glucose (mg/dL) Random Glucose Calcium Phosphorus Magnesium Iron TIBC % Saturation Total Bilirubin AST ALT Alkaline Phosphatase Troponin I Total Protein Albumin Globulin Albumin/Globulin Ratio Triglycerides Cholesterol LDL Cholesterol Direct HDL Cholesterol Lipase Venous Blood Potassium 3.8 Blood Type Blood Type Confirm O POSITIVE Antibody Screen BBK History Checked 05/28/18 05/28/18 05/28/18 07:00 07:00 07:35 WBC RBC Hgb Hct MCV MCH MCHC RDW Plt Count MPV Gran % Lymph % (Auto) [place] % (Auto) Eos % (Auto) Baso % (Auto) Gran # Lymph # (Auto) [place] # (Auto) Eos # (Auto) Baso # (Auto) PT INR APTT pO2 VBG pH VBG pCO2 VBG HCO3 VBG Total CO2 VBG O2 Sat (Calc) VBG Base Excess VBG Potassium Sodium 139 Chloride 109 H Glucose Lactate FiO2 Potassium 3.4 L Carbon Dioxide 23 Anion Gap 10 BUN 11 Creatinine 0.6 L Est GFR ( Amer) > 60 Est GFR (Non-Af Amer) > 60 POC Glucose (mg/dL) 151 H Random Glucose 146 H Calcium 8.4 Phosphorus 3.3 Magnesium 1.8 Iron 104 TIBC 318 % Saturation 33 Total Bilirubin 0.7 AST 17 D ALT 26 Alkaline Phosphatase 78 Troponin I Total Protein 6.4 Albumin 3.5 Globulin 2.9 Albumin/Globulin Ratio 1.2 Triglycerides 122 Cholesterol 138 LDL Cholesterol Direct 100 HDL Cholesterol 29 Lipase Venous Blood Potassium Blood Type Blood Type Confirm Antibody Screen BBK History Checked Assessment & Plan - Assessment and Plan (Free Text) Assessment: 52 yo Hisp Male with DM, HTN, HLD presenting with BRBPR and hyperglycemia. # Painless Hematochezia: Likely due to hemorrhoids, possible diverticulosis, AVM or even malignancy. Hgb 14.6 and vitals stable. No prior CSPY. He is overdue for screening but would now benefit from diagnostic evaluation. Given Hgb and vitals stable, can plan on CSPY as outpatient as long as continues to do well clinically. Plan: - F/u CT ordered by primary team - Likely plan for outpatient Colonoscopy pending CT results - OK to advance diet post CT Pt seen and examined with Dr. Bourgeois; please see attestation for further recs/changes. Francisco Mccarty, PGY-4 <Marshal Bourgeois - Last Filed: 05/28/18 10:15> Meds - Medications Medications: Current Medications Dextrose (Dextrose 50% Inj) 0 ml IV STAT PRN; Protocol PRN Reason: Hypoglycemia Protocol Dextrose (Dextrose 5% In Water 1000 Ml) 1,000 mls @ 0 mls/hr IV .Q0M PRN; Protocol PRN Reason: Hypoglycemia Protocol Sodium Chloride (Sodium Chloride 0.9%) 1,000 mls @ 150 mls/hr IV .Q6H40M [facility] Insulin Human Regular (Humulin R Low) 0 units SC Q6H [facility]; Protocol Last Admin: 05/28/18 08:07 Dose: Not Given Levalbuterol HCl (Xopenex) 0.63 mg IH [id number] PRN PRN Reason: Shortness of Breath Pantoprazole Sodium (Protonix Ec Tab) 40 mg PO 0600 [facility] Last Admin: 05/28/18 05:29 Dose: 40 mg Results - Vital Signs Recent Vital Signs: Last Vital Signs Temp 98.7 F 05/28/18 06:37 Pulse 88 05/28/18 06:37 Resp 20 05/28/18 06:37 BP 104/73 05/28/18 06:37 Pulse Ox 98 05/28/18 06:37 - Labs Result Diagrams: 05/28/18 07:00 05/28/18 07:00 Labs: Laboratory Results - last 24 hr 05/27/18 05/27/18 05/27/18 22:30 22:39 22:39 WBC 8.4 RBC 4.90 Hgb 14.6 Hct 39.7 L MCV 81.0 MCH 29.8 MCHC 36.8 RDW 11.7 Plt Count 193 MPV 11.6 H Gran % 61.4 Lymph % (Auto) 32.3 [place] % (Auto) 4.7 Eos % (Auto) 1.4 L Baso % (Auto) 0.2 Gran # 5.14 Lymph # (Auto) 2.7 [place] # (Auto) 0.4 Eos # (Auto) 0.1 Baso # (Auto) 0.02 PT 10.8 INR 0.95 APTT 25.2 pO2 VBG pH VBG pCO2 VBG HCO3 VBG Total CO2 VBG O2 Sat (Calc) VBG Base Excess VBG Potassium Sodium Chloride Glucose Lactate FiO2 Potassium Carbon Dioxide Anion Gap BUN Creatinine Est GFR ( Amer) Est GFR (Non-Af Amer) POC Glucose (mg/dL) Random Glucose Calcium Phosphorus Magnesium Iron TIBC % Saturation Total Bilirubin AST ALT Alkaline Phosphatase Troponin I Total Protein Albumin Globulin Albumin/Globulin Ratio Triglycerides Cholesterol LDL Cholesterol Direct HDL Cholesterol Lipase TSH 3rd Generation Venous Blood Potassium Blood Type O POSITIVE Blood Type Confirm Antibody Screen Negative BBK History Checked No verified bt 05/27/18 05/27/18 05/28/18 22:39 22:39 00:00 WBC RBC Hgb Hct MCV MCH MCHC RDW Plt Count MPV Gran % Lymph % (Auto) [place] % (Auto) Eos % (Auto) Baso % (Auto) Gran # Lymph # (Auto) [place] # (Auto) Eos # (Auto) Baso # (Auto) PT INR APTT pO2 72 H VBG pH 7.48 H VBG pCO2 24.0 L VBG HCO3 17.9 L VBG Total CO2 18.6 L VBG O2 Sat (Calc) 97.4 H VBG Base Excess -3.8 L VBG Potassium 3.6 Sodium 136 136.0 Chloride 104 101.0 Glucose 445 H* Lactate 3.7 H FiO2 21.0 Potassium 3.6 Carbon Dioxide 17 L Anion Gap 18 BUN 15 Creatinine 0.8 Est GFR ( Amer) > 60 Est GFR (Non-Af Amer) > 60 POC Glucose (mg/dL) 299 H Random Glucose 433 H* D Calcium 9.3 Phosphorus Magnesium Iron TIBC % Saturation Total Bilirubin 0.6 AST 31 ALT 14 Alkaline Phosphatase 125 Troponin I < 0.01 Total Protein 7.7 Albumin 4.3 Globulin 3.5 Albumin/Globulin Ratio 1.2 Triglycerides Cholesterol LDL Cholesterol Direct HDL Cholesterol Lipase 144 TSH 3rd Generation Venous Blood Potassium 3.6 Blood Type Blood Type Confirm Antibody Screen BBK History Checked 05/28/18 05/28/18 05/28/18 03:00 03:00 07:00 WBC 6.5 D RBC 4.23 Hgb 12.2 L D Hct 34.6 L MCV 81.8 MCH 28.8 MCHC 35.3 RDW 11.9 Plt Count 149 MPV 11.6 H Gran % 55.5 Lymph % (Auto) 37.3 H [place] % (Auto) 5.5 Eos % (Auto) 1.5 Baso % (Auto) 0.2 Gran # 3.60 Lymph # (Auto) 2.4 [place] # (Auto) 0.4 Eos # (Auto) 0.1 Baso # (Auto) 0.01 PT INR APTT pO2 64 H VBG pH 7.40 VBG pCO2 38.0 L VBG HCO3 23.5 VBG Total CO2 24.7 VBG O2 Sat (Calc) 94.3 H VBG Base Excess -1.1 L VBG Potassium 3.8 Sodium 138.0 Chloride 109.0 H Glucose 183 H Lactate 1.3 FiO2 21.0 Potassium Carbon Dioxide Anion Gap BUN Creatinine Est GFR ( Amer) Est GFR (Non-Af Amer) POC Glucose (mg/dL) Random Glucose Calcium Phosphorus Magnesium Iron TIBC % Saturation Total Bilirubin AST ALT Alkaline Phosphatase Troponin I Total Protein Albumin Globulin Albumin/Globulin Ratio Triglycerides Cholesterol LDL Cholesterol Direct HDL Cholesterol Lipase TSH 3rd Generation Venous Blood Potassium 3.8 Blood Type Blood Type Confirm O POSITIVE Antibody Screen BBK History Checked 05/28/18 05/28/18 05/28/18 07:00 07:00 07:00 WBC RBC Hgb Hct MCV MCH MCHC RDW Plt Count MPV Gran % Lymph % (Auto) [place] % (Auto) Eos % (Auto) Baso % (Auto) Gran # Lymph # (Auto) [place] # (Auto) Eos # (Auto) Baso # (Auto) PT INR APTT pO2 VBG pH VBG pCO2 VBG HCO3 VBG Total CO2 VBG O2 Sat (Calc) VBG Base Excess VBG Potassium Sodium 139 Chloride 109 H Glucose Lactate FiO2 Potassium 3.4 L Carbon Dioxide 23 Anion Gap 10 BUN 11 Creatinine 0.6 L Est GFR ( Amer) > 60 Est GFR (Non-Af Amer) > 60 POC Glucose (mg/dL) Random Glucose 146 H Calcium 8.4 Phosphorus 3.3 Magnesium 1.8 Iron 104 TIBC 318 % Saturation 33 Total Bilirubin 0.7 AST 17 D ALT 26 Alkaline Phosphatase 78 Troponin I Total Protein 6.4 Albumin 3.5 Globulin 2.9 Albumin/Globulin Ratio 1.2 Triglycerides 122 Cholesterol 138 LDL Cholesterol Direct 100 HDL Cholesterol 29 Lipase TSH 3rd Generation 0.50 Venous Blood Potassium Blood Type Blood Type Confirm Antibody Screen BBK History Checked 05/28/18 07:35 WBC RBC Hgb Hct MCV MCH MCHC RDW Plt Count MPV Gran % Lymph % (Auto) [place] % (Auto) Eos % (Auto) Baso % (Auto) Gran # Lymph # (Auto) [place] # (Auto) Eos # (Auto) Baso # (Auto) PT INR APTT pO2 VBG pH VBG pCO2 VBG HCO3 VBG Total CO2 VBG O2 Sat (Calc) VBG Base Excess VBG Potassium Sodium Chloride Glucose Lactate FiO2 Potassium Carbon Dioxide Anion Gap BUN Creatinine Est GFR ( Amer) Est GFR (Non-Af Amer) POC Glucose (mg/dL) 151 H Random Glucose Calcium Phosphorus Magnesium Iron TIBC % Saturation Total Bilirubin AST ALT Alkaline Phosphatase Troponin I Total Protein Albumin Globulin Albumin/Globulin Ratio Triglycerides Cholesterol LDL Cholesterol Direct HDL Cholesterol Lipase TSH 3rd Generation Venous Blood Potassium Blood Type Blood Type Confirm Antibody Screen BBK History Checked Attending/Attestation - Attestation I have personally seen and examined this patient.: Yes I have fully participated in the care of the patient.: Yes I have reviewed all pertinent clinical information: Yes Notes (Text): 05/28/18 10:10 I have seen and examined patient with GI fellow. Agree with above documentation with the following additions. In brief, this is a 52 year old male with history of DM, HTN, hyperlipidemia who presents to hospital with complaint of rectal bleeding which started yesterday. Prior to this he was in usual state of health. He describes one episode of bright red blood per rectum yesterday during defecation and admits to straining. He otherwise denies abdominal pain, nausea, vomiting, fever/chills, weight loss, or prior similar episodes. No prior endoscopic evaluation. Review of vitals from today are normal. DM / HTN Hyperlipidemia Rectal bleeding, one episode - Diet as tolerated - H/H stable, continue to monitor. No presence of active bleeding or palpable lesions noted on rectal examination today. - CT imaging ordered by surgical team, will follow up results - Patient would benefit from elective outpatient colonoscopy for cancer screening purposes and further evaluation of rectal bleeding. From GI standpoint, if no significant abnormalities noted on CT imaging, would advance patient diet and can likely discharge home with subsequent outpatient follow up. Case discussed with Dr. Davila.
--- NOTE | 2018-05-28 11:13 | RAD ---
Date of service: 05/27/2018 HISTORY: tachycardia COMPARISON: No prior. FINDINGS: LUNGS: No active pulmonary disease. PLEURA: No significant pleural effusion identified, no pneumothorax apparent. CARDIOVASCULAR: No atherosclerotic calcification present Normal. OSSEOUS STRUCTURES: No significant abnormalities. VISUALIZED UPPER ABDOMEN: Normal. OTHER FINDINGS: None. IMPRESSION: No active disease.
[2018-05-28] MEDS ORDERED: Potassium Chloride 20 mEq ER Tab PO ONE (11:29)
[2018-05-28 11:45] LABS: FERRITIN 45.1 ng/mL
[2018-05-28] MEDS ORDERED: Iohexol 350 MG/100 ML VIAL ONE (11:52)
--- NOTE | 2018-05-28 12:22 | CT ---
Date of service: 05/28/2018 PROCEDURE: CT Abdomen and Pelvis with contrast HISTORY: bleeding, tenesmus COMPARISON: None. TECHNIQUE: Intravenous contrast dose: 100 cc Omnipaque 350. Radiation dose: Total exam DLP = 298.31 mGy-cm. This CT exam was performed using one or more of the following dose reduction techniques: Automated exposure control, adjustment of the mA and/or kV according to patient size, and/or use of iterative reconstruction technique. FINDINGS: LOWER THORAX: Unremarkable. LIVER: Unremarkable. No gross lesion or ductal dilatation. GALLBLADDER AND BILE DUCTS: Unremarkable. PANCREAS: Unremarkable. No gross lesion or ductal dilatation. SPLEEN: Unremarkable. ADRENALS: Unremarkable. No mass. KIDNEYS AND URETERS: Unremarkable. No hydronephrosis. No solid mass. VASCULATURE: Unremarkable. No aortic aneurysm. No atherosclerotic calcification or mural plaque present. BOWEL: Unremarkable. No obstruction. No gross mural thickening. APPENDIX: Small appendicular less identified. No abnormalities to suggest acute appendicitis. No right lower quadrant inflammatory processes identified. PERITONEUM: Unremarkable. No free fluid. No free air. LYMPH NODES: Unremarkable. No enlarged lymph nodes. BLADDER: Unremarkable. REPRODUCTIVE: Unremarkable. BONES: No acute fracture. OTHER FINDINGS: None. IMPRESSION: No significant or acute findings to account for/ related to the clinical presentation. Additional benign and/or incidental findings described above.
[2018-05-28 13:14] LABS: FOLATE 14.1 ng/mL
[2018-05-29 01:19] VITALS: RESP 18; TEMP 97.9
[2018-05-29] MEDS: Insulin Reg-LOW-Coverage SC SCH ×2 (01:40→08:56)
[2018-05-29 05:46] VITALS: O2SAT 100
[2018-05-29] MEDS: Pantoprazole 40 mg EC Tab PO SCH (06:17)
--- NOTE | 2018-05-29 06:17 | CP.PCM.PN ---
Subjective - Date & Time of Evaluation Date of Evaluation: 05/29/18 Time of Evaluation: 06:14 - Subjective Subjective: Patient seen and examined, resting in bed comfortably. No acute events overnight, he had one formed bowel movement without presence of blood in stool yesterday. He denies abdominal pain, nausea, vomiting, fever/chills. Tolerating PO diet without difficulty. Review of vitals from today are normal. 12 point review of systems performed, negative aside from mentioned above. Objective - Vital Signs/Intake and Output Vital Signs (last 24 hours): Temp Pulse Resp BP Pulse Ox 97.9 F 83 18 116/79 100 05/29/18 05:45 05/29/18 05:45 05/29/18 05:45 05/29/18 05:45 05/29/18 05:45 Intake and Output: 05/28/18 05/29/18 18:59 06:59 Intake Total 1140 Balance 1140 - Medications Medications: Current Medications Dextrose (Dextrose 50% Inj) 0 ml IV STAT PRN; Protocol PRN Reason: Hypoglycemia Protocol Dextrose (Dextrose 5% In Water 1000 Ml) 1,000 mls @ 0 mls/hr IV .Q0M PRN; Protocol PRN Reason: Hypoglycemia Protocol Insulin Human Regular (Humulin R Low) 0 units SC Q6H [facility]; Protocol Last Admin: 05/29/18 01:40 Dose: Not Given Levalbuterol HCl (Xopenex) 0.63 mg IH [id number] PRN PRN Reason: Shortness of Breath Pantoprazole Sodium (Protonix Ec Tab) 40 mg PO 0600 [facility] Last Admin: 05/28/18 05:29 Dose: 40 mg - Labs Labs: 05/28/18 07:00 05/28/18 07:00 PT 10.8 SECONDS (9.4-12.5) 05/27/18 22:39 INR 0.95 05/27/18 22:39 APTT 25.2 Seconds (25.1-36.5) 05/27/18 22:39 - Constitutional Appears: Non-toxic, No Acute Distress - Head Exam Head Exam: NORMAL INSPECTION - Eye Exam Eye Exam: EOMI, Normal appearance - ENT Exam ENT Exam: Mucous Membranes Moist - Respiratory Exam Respiratory Exam: Clear to Ausculation Bilateral - Cardiovascular Exam Cardiovascular Exam: +S1, +S2 - GI/Abdominal Exam GI & Abdominal Exam: Soft, Normal Bowel Sounds Additional comments: non tender to palpation in four quadrants - Extremities Exam Extremities Exam: Normal Inspection - Skin Skin Exam: Dry, Intact, Normal Color, Warm Assessment and Plan - Assessment and Plan (Free Text) Assessment: DM HTN Rectal bleeding - resolved CT imaging reviewed by me showing no gross GI pathology Plan: - Diet as tolerated - H/H stable, continue to monitor - Patient would benefit from outpatient elective screening colonoscopy - No further planned GI intervention, will sign off case. Please reconsult as necessary, thank you.
--- NOTE | 2018-05-29 06:19 | CP.PCM.PN ---
Subjective - Date & Time of Evaluation Date of Evaluation: 05/29/18 Time of Evaluation: 07:15 - Subjective Subjective: General Surgery progress note for Dr. Whitney Patient seen and examined this am at bedside. He states he is feeling much better and denies any abdominal pain or further blood in BM. He additionally denies EGAN, SOB, CP, f/c, n/v and extremity pain/weakness. Objective - Vital Signs/Intake and Output Vital Signs (last 24 hours): Temp Pulse Resp BP Pulse Ox 97.9 F 83 18 116/79 100 05/29/18 05:45 05/29/18 05:45 05/29/18 05:45 05/29/18 05:45 05/29/18 05:45 Intake and Output: 05/28/18 05/29/18 18:59 06:59 Intake Total 1140 Balance 1140 - Medications Medications: Current Medications Dextrose (Dextrose 50% Inj) 0 ml IV STAT PRN; Protocol PRN Reason: Hypoglycemia Protocol Dextrose (Dextrose 5% In Water 1000 Ml) 1,000 mls @ 0 mls/hr IV .Q0M PRN; Protocol PRN Reason: Hypoglycemia Protocol Insulin Human Regular (Humulin R Low) 0 units SC Q6H [facility]; Protocol Last Admin: 05/29/18 01:40 Dose: Not Given Levalbuterol HCl (Xopenex) 0.63 mg IH [id number] PRN PRN Reason: Shortness of Breath Pantoprazole Sodium (Protonix Ec Tab) 40 mg PO 0600 [facility] Last Admin: 05/28/18 05:29 Dose: 40 mg - Labs Labs: 05/28/18 07:00 05/28/18 07:00 PT 10.8 SECONDS (9.4-12.5) 05/27/18 22:39 INR 0.95 05/27/18 22:39 APTT 25.2 Seconds (25.1-36.5) 05/27/18 22:39 - Constitutional Appears: Well, Non-toxic, No Acute Distress - Head Exam Head Exam: ATRAUMATIC, NORMOCEPHALIC - Eye Exam Eye Exam: EOMI - ENT Exam ENT Exam: Mucous Membranes Moist - Respiratory Exam Respiratory Exam: NORMAL BREATHING PATTERN - Cardiovascular Exam Cardiovascular Exam: REGULAR RHYTHM - GI/Abdominal Exam GI & Abdominal Exam: Soft. absent: Distended, Guarding, Tenderness - Extremities Exam Extremities Exam: absent: Calf Tenderness, Pedal Edema - Neurological Exam Neurological Exam: Alert, Awake, Oriented x3 - Psychiatric Exam Psychiatric exam: Normal Affect, Normal Mood - Skin Skin Exam: Dry, Intact, Normal Color, Warm Assessment and Plan - Assessment and Plan (Free Text) Assessment: 52 yr old male with GI bleed Plan: tolerating diet well no further bloody BM f/u H/H this am no surgical intervention needed at this time recommend outpatient GI follow up for colonoscopy will discuss with Dr. Devonte Beltrán, PGY 1
[2018-05-29 06:51] LABS: BASO # 0.01 K/mm3 (0.0-2.0); BASO % 0.2 % (0.0-3.0); EOS # 0.2 (0.0-0.7); GRAN # 2.39 (1.4-6.5); GRAN % 45.9 % (50.0-68.0); HEMOGLOBIN 12.4 g/dL (14.0-18.0); LYMPH # 2.2 (1.2-3.4); LYMPH % 42.6 % (22.0-35.0); MEAN CELL VOLUME 82.8 fl (80.0-105.0); MEAN CORPUSCULAR HEMOGLOBIN 28.8 pg (25.0-35.0); MEAN CORPUSCULAR HGB CONC 34.8 g/dl (31.0-37.0); MEAN PLATELET VOLUME 11.7 fl (7.0-11.0); MONO # 0.4 (0.1-0.6); MONO % 7.3 % (1.0-6.0); RBC 4.3 10^6/uL (3.5-6.1); RED CELL DISTRIBUTION WIDTH 11.9 % (11.5-14.5); WHITE BLOOD COUNT 5.2 10^3/uL (4.5-11.0)
[2018-05-29 06:55] LABS: ALB/GLOB RATIO 1.3 (1.1-1.8); ALBUMIN 3.8 g/dL (3.0-4.8); ALT/SGPT 26 U/L (7-56); AST/SGOT 20 U/L (17-59); BLOOD UREA NITROGEN 14 mg/dL (7-21); CALCIUM 8.8 mg/dL (8.4-10.5); GFR NON-AFRICAN AMERICAN > 60
--- NOTE | 2018-05-29 10:13 | CP.PCM.DIS ---
<Terrence Montano L - Last Filed: 05/29/18 18:07> Provider - Provider Date of Admission: 05/27/18 23:15 Attending physician: Tai Davila MD Primary care physician: [facility] Consults: 05/28/18 01:28 Physician Consult Routine Comment: Consulting Provider: Doug Whitney Consulting Physician: Doug Whitney Reason for Consult: lower GI bleed 05/28/18 03:06 Diabetic Education Referral Routine Comment: Physician Instructions: Reason For Exam: new admit Time Spent in preparation of Discharge (in minutes): 35 Diagnosis - Discharge Diagnosis (1) Rectal bleed Status: Acute (2) Hyperglycemia Status: Acute Hospital Course - Lab Results Lab Results: Most Recent Lab Values WBC 5.2 10^3/uL (4.5-11.0) 05/29/18 06:00 RBC 4.30 10^6/uL (3.5-6.1) 05/29/18 06:00 Hgb 12.4 g/dL (14.0-18.0) L 05/29/18 06:00 Hct 35.6 % (42.0-52.0) L 05/29/18 06:00 MCV 82.8 fl (80.0-105.0) 05/29/18 06:00 MCH 28.8 pg (25.0-35.0) 05/29/18 06:00 MCHC 34.8 g/dl (31.0-37.0) 05/29/18 06:00 RDW 11.9 % (11.5-14.5) 05/29/18 06:00 Plt Count 150 10^3/uL (120.0-450.0) 05/29/18 06:00 MPV 11.7 fl (7.0-11.0) H 05/29/18 06:00 Gran % 45.9 % (50.0-68.0) L 05/29/18 06:00 Lymph % (Auto) 42.6 % (22.0-35.0) H 05/29/18 06:00 [place] % (Auto) 7.3 % (1.0-6.0) H 05/29/18 06:00 Eos % (Auto) 4.0 % (1.5-5.0) 05/29/18 06:00 Baso % (Auto) 0.2 % (0.0-3.0) 05/29/18 06:00 Gran # 2.39 (1.4-6.5) 05/29/18 06:00 Lymph # (Auto) 2.2 (1.2-3.4) 05/29/18 06:00 [place] # (Auto) 0.4 (0.1-0.6) 05/29/18 06:00 Eos # (Auto) 0.2 (0.0-0.7) 05/29/18 06:00 Baso # (Auto) 0.01 K/mm3 (0.0-2.0) 05/29/18 06:00 PT 10.8 SECONDS (9.4-12.5) 05/27/18 22:39 INR 0.95 05/27/18 22:39 APTT 25.2 Seconds (25.1-36.5) 05/27/18 22:39 pO2 64 mm/Hg (30-55) H 05/28/18 03:00 VBG pH 7.40 (7.32-7.43) 05/28/18 03:00 VBG pCO2 38.0 (40-60) L 05/28/18 03:00 VBG HCO3 23.5 mmol/l (21-28) 05/28/18 03:00 VBG Total CO2 24.7 mmol.L (22-28) 05/28/18 03:00 VBG O2 Sat (Calc) 94.3 % (40-65) H 05/28/18 03:00 VBG Base Excess -1.1 mmol/L (0.0-2.0) L 05/28/18 03:00 VBG Potassium 3.8 mmol/L (3.6-5.2) 05/28/18 03:00 Sodium 138.0 mmol/L (132-148) 05/28/18 03:00 Chloride 109.0 mmol/L (98-107) H 05/28/18 03:00 Glucose 183 mg/dl (75-110) H 05/28/18 03:00 Lactate 1.3 mmol/L (0.7-2.1) 05/28/18 03:00 FiO2 21.0 % 05/28/18 03:00 Sodium 138 mmol/L (132-148) 05/29/18 06:00 Potassium 4.2 mmol/L (3.6-5.0) 05/29/18 06:00 Chloride 105 mmol/L (98-107) 05/29/18 06:00 Carbon Dioxide 27 mmol/L (21-33) 05/29/18 06:00 Anion Gap 11 (10-20) 05/29/18 06:00 BUN 14 mg/dL (7-21) 05/29/18 06:00 Creatinine 0.8 mg/dl (0.8-1.5) 05/29/18 06:00 Est GFR ( Amer) > 60 05/29/18 06:00 Est GFR (Non-Af Amer) > 60 05/29/18 06:00 POC Glucose (mg/dL) 176 mg/dL (65-110) H 05/29/18 06:50 Random Glucose 173 mg/dL (70-110) H 05/29/18 06:00 Hemoglobin A1c 10.1 % (4.2-6.5) H 05/28/18 07:00 Calcium 8.8 mg/dL (8.4-10.5) 05/29/18 06:00 Phosphorus 3.3 mg/dL (2.5-4.5) 05/28/18 07:00 Magnesium 1.8 mg/dL (1.7-2.2) 05/28/18 07:00 Iron 104 ug/dL (45-180) 05/28/18 07:00 TIBC 318 ug/dL (261-462) 05/28/18 07:00 % Saturation 33 % (20-55) 05/28/18 07:00 Ferritin 45.1 ng/mL 05/28/18 07:00 Total Bilirubin 0.6 mg/dL (0.2-1.3) 05/29/18 06:00 AST 20 U/L (17-59) 05/29/18 06:00 ALT 26 U/L (7-56) 05/29/18 06:00 Alkaline Phosphatase 76 U/L (38-126) 05/29/18 06:00 Troponin I < 0.01 ng/mL 05/27/18 22:39 Total Protein 6.7 g/dL (5.8-8.3) 05/29/18 06:00 Albumin 3.8 g/dL (3.0-4.8) 05/29/18 06:00 Globulin 2.9 gm/dL 05/29/18 06:00 Albumin/Globulin Ratio 1.3 (1.1-1.8) 05/29/18 06:00 Triglycerides 122 mg/dL (35-160) 05/28/18 07:00 Cholesterol 138 mg/dL (130-200) 05/28/18 07:00 LDL Cholesterol Direct 100 mg/dL (0-129) 05/28/18 07:00 HDL Cholesterol 29 mg/dL (29-60) 05/28/18 07:00 Lipase 144 U/L (23-300) 05/27/18 22:39 Vitamin B12 291 pg/mL (239-931) 05/28/18 07:00 Folate 14.1 ng/mL 05/28/18 07:00 TSH 3rd Generation 0.50 mIU/mL (0.46-4.68) 05/28/18 07:00 Venous Blood Potassium 3.8 mmol/L (3.6-5.2) 05/28/18 03:00 Blood Type O POSITIVE 05/27/18 22:30 Blood Type Confirm O POSITIVE 05/28/18 03:00 Antibody Screen Negative 05/27/18 22:30 BBK History Checked No verified bt 05/27/18 22:30 - Hospital Course Hospital Course: On admission: 52 y/o male with PMH of diabetes presents to ED with one episode of bright blood per rectum for the first time yesterday which was moderate amount. He denied constipation, change of bowel movement, N/V/D, GERD, NSAID use, constitutional symptoms, weight changes, history of hemorrhoids or any GI disease. He never had colonscopy or EGD in the past with no history of cancer. Patient admits to being diagnosed with DM few years ago but he did not take any meds for it. He denied polyphagia, polydipsea, excessive thirst, numbness/tingling in his extremities, muscle weakness. He admits to visual changes and having poor circulation in b/l lower extremity. He can walk for an hour without having calf muscle pain or SOB. He denied CP, SOB, palpitations, headache, leg swelling, exercise intolerance or dyspnea. During hospital stay: CT abd/pelvis was done which was unremarkable. GI and surgery were consulted. No immediate intervention was recommended. Patient's rectal bleeding resolved. Patient tolerated advancement of diet well. Patient was also found to have elevated sugars in the 200s. Patient was discharged with prescriptions for glucometer, glipizide, and metformin, Miralax. Patient was advised to follow up in [facility]. Please see EMR for full summary. - Date & Time of H&P Date of H&P: 05/28/18 Time of H&P: :24 Discharge Exam - Additional Findings Additional findings: - Constitutional Appears: No Acute Distress - Head Exam Head Exam: NORMOCEPHALIC - Eye Exam Eye Exam: EOMI, Normal appearance - ENT Exam ENT Exam: Mucous Membranes Moist - Respiratory Exam Respiratory Exam: NORMAL BREATHING PATTERN, Clear to Auscultation Bilaterally. absent: Wheezes, Ronchi - Cardiovascular Exam Cardiovascular Exam: +S1, +S2. absent: Systolic Murmurs - GI/Abdominal Exam GI & Abdominal Exam: Soft. absent: Distended, Firm, Guarding, Rebound, Rigid, Tenderness - Neurological Exam Neurological exam: Alert, Oriented x3 - Psychiatric Exam Psychiatric exam: Normal Mood - Skin Skin Exam: Dry, Intact, Warm Discharge Plan - Discharge Medications Prescriptions: GlipiZIDE [Glucotrol] 5 mg PO DAILY 14 Days tab Lancets [Glucocom] 1 each MC DAILY #1 each Lancets [Glucocom Lancets] 1 each MC ACHS 14 Days each metFORMIN [glucOPHAGE] 500 mg PO DAILY 14 Days tab Polyethylene Glycol 3350 [Miralax] 17 gm PO DAILY PRN 14 Days ml PRN Reason: Constipation - Follow Up Plan Condition: GOOD Disposition: HOME/ ROUTINE Patient education suggested?: Yes Instructions: Type 2 Diabetes, Diabetes Diet , Blood Glucose Monitoring Additional Instructions: Please follow up with your primary medical doctor within one week. Please also follow up with your primary doctor regarding referrals for yearly diabetic foot and eye exams. Please call the [facility] [address] at [phone] to set up your appointment. You have also been prescribed metformin, glipizide, and miralax. Please take these as prescribed. Resume your other home medications as prescribed. Check your sugars before meals and before bedtime with the glucometer. Return to ED if symptoms return or worsen. Referrals: [facility] [place] <Tai Davila - Last Filed: 05/30/18 08:18> Provider - Provider Date of Admission: 05/27/18 23:15 Attending physician: Tai Davila MD Consults: 05/28/18 01:28 Physician Consult Routine Comment: Consulting Provider: Doug Whitney Consulting Physician: Doug Whitney Reason for Consult: lower GI bleed 05/28/18 03:06 Diabetic Education Referral Routine Comment: Physician Instructions: Reason For Exam: new admit Hospital Course - Lab Results Lab Results: Most Recent Lab Values WBC 5.2 10^3/uL (4.5-11.0) 05/29/18 06:00 RBC 4.30 10^6/uL (3.5-6.1) 05/29/18 06:00 Hgb 12.4 g/dL (14.0-18.0) L 05/29/18 06:00 Hct 35.6 % (42.0-52.0) L 05/29/18 06:00 MCV 82.8 fl (80.0-105.0) 05/29/18 06:00 MCH 28.8 pg (25.0-35.0) 05/29/18 06:00 MCHC 34.8 g/dl (31.0-37.0) 05/29/18 06:00 RDW 11.9 % (11.5-14.5) 05/29/18 06:00 Plt Count 150 10^3/uL (120.0-450.0) 05/29/18 06:00 MPV 11.7 fl (7.0-11.0) H 05/29/18 06:00 Gran % 45.9 % (50.0-68.0) L 05/29/18 06:00 Lymph % (Auto) 42.6 % (22.0-35.0) H 05/29/18 06:00 [place] % (Auto) 7.3 % (1.0-6.0) H 05/29/18 06:00 Eos % (Auto) 4.0 % (1.5-5.0) 05/29/18 06:00 Baso % (Auto) 0.2 % (0.0-3.0) 05/29/18 06:00 Gran # 2.39 (1.4-6.5) 05/29/18 06:00 Lymph # (Auto) 2.2 (1.2-3.4) 05/29/18 06:00 [place] # (Auto) 0.4 (0.1-0.6) 05/29/18 06:00 Eos # (Auto) 0.2 (0.0-0.7) 05/29/18 06:00 Baso # (Auto) 0.01 K/mm3 (0.0-2.0) 05/29/18 06:00 PT 10.8 SECONDS (9.4-12.5) 05/27/18 22:39 INR 0.95 05/27/18 22:39 APTT 25.2 Seconds (25.1-36.5) 05/27/18 22:39 pO2 64 mm/Hg (30-55) H 05/28/18 03:00 VBG pH 7.40 (7.32-7.43) 05/28/18 03:00 VBG pCO2 38.0 (40-60) L 05/28/18 03:00 VBG HCO3 23.5 mmol/l (21-28) 05/28/18 03:00 VBG Total CO2 24.7 mmol.L (22-28) 05/28/18 03:00 VBG O2 Sat (Calc) 94.3 % (40-65) H 05/28/18 03:00 VBG Base Excess -1.1 mmol/L (0.0-2.0) L 05/28/18 03:00 VBG Potassium 3.8 mmol/L (3.6-5.2) 05/28/18 03:00 Sodium 138.0 mmol/L (132-148) 05/28/18 03:00 Chloride 109.0 mmol/L (98-107) H 05/28/18 03:00 Glucose 183 mg/dl (75-110) H 05/28/18 03:00 Lactate 1.3 mmol/L (0.7-2.1) 05/28/18 03:00 FiO2 21.0 % 05/28/18 03:00 Sodium 138 mmol/L (132-148) 05/29/18 06:00 Potassium 4.2 mmol/L (3.6-5.0) 05/29/18 06:00 Chloride 105 mmol/L (98-107) 05/29/18 06:00 Carbon Dioxide 27 mmol/L (21-33) 05/29/18 06:00 Anion Gap 11 (10-20) 05/29/18 06:00 BUN 14 mg/dL (7-21) 05/29/18 06:00 Creatinine 0.8 mg/dl (0.8-1.5) 05/29/18 06:00 Est GFR ( Amer) > 60 05/29/18 06:00 Est GFR (Non-Af Amer) > 60 05/29/18 06:00 POC Glucose (mg/dL) 189 mg/dL (65-110) H 05/29/18 11:21 Random Glucose 173 mg/dL (70-110) H 05/29/18 06:00 Hemoglobin A1c 10.1 % (4.2-6.5) H 05/28/18 07:00 Calcium 8.8 mg/dL (8.4-10.5) 05/29/18 06:00 Phosphorus 3.3 mg/dL (2.5-4.5) 05/28/18 07:00 Magnesium 1.8 mg/dL (1.7-2.2) 05/28/18 07:00 Iron 104 ug/dL (45-180) 05/28/18 07:00 TIBC 318 ug/dL (261-462) 05/28/18 07:00 % Saturation 33 % (20-55) 05/28/18 07:00 Ferritin 45.1 ng/mL 05/28/18 07:00 Total Bilirubin 0.6 mg/dL (0.2-1.3) 05/29/18 06:00 AST 20 U/L (17-59) 05/29/18 06:00 ALT 26 U/L (7-56) 05/29/18 06:00 Alkaline Phosphatase 76 U/L (38-126) 05/29/18 06:00 Troponin I < 0.01 ng/mL 05/27/18 22:39 Total Protein 6.7 g/dL (5.8-8.3) 05/29/18 06:00 Albumin 3.8 g/dL (3.0-4.8) 05/29/18 06:00 Globulin 2.9 gm/dL 05/29/18 06:00 Albumin/Globulin Ratio 1.3 (1.1-1.8) 05/29/18 06:00 Triglycerides 122 mg/dL (35-160) 05/28/18 07:00 Cholesterol 138 mg/dL (130-200) 05/28/18 07:00 LDL Cholesterol Direct 100 mg/dL (0-129) 05/28/18 07:00 HDL Cholesterol 29 mg/dL (29-60) 05/28/18 07:00 Lipase 144 U/L (23-300) 05/27/18 22:39 Vitamin B12 291 pg/mL (239-931) 05/28/18 07:00 Folate 14.1 ng/mL 05/28/18 07:00 TSH 3rd Generation 0.50 mIU/mL (0.46-4.68) 05/28/18 07:00 Venous Blood Potassium 3.8 mmol/L (3.6-5.2) 05/28/18 03:00 Blood Type O POSITIVE 05/27/18 22:30 Blood Type Confirm O POSITIVE 05/28/18 03:00 Antibody Screen Negative 05/27/18 22:30 BBK History Checked No verified bt 05/27/18 22:30 Attending/Attestation - Attestation I have personally seen and examined this patient.: Yes I have fully participated in the care of the patient.: Yes I have reviewed all pertinent clinical information, including history, physical exam and plan: Yes Notes (Text): 05/29/18 52 year old male with past medical history of diabetes, noncompliant with medications, who presented with complaint of bright red blood per rectum x 1 day. He was admitted for observation. H/H remained stable and he had no further bleeding episodes. CT abd/pelvis was negative for acute findings. He was seen by GI who recommended outpatient colonoscopy. He was also found to have hyperglycemia, secondary to medication noncompliance. A1c was 10.1. He was recommended and offered started insulin therapy. However he refused, stating he would rather start with oral medications. He will be started on metformin and glipizide with recommendation to monitor his fingersticks and follow up as outpatient. Patient is discharged home to follow up at [facility]. Follow up with GI for outpatient colonoscopy. Counselled on diabetic education, medication compliance and monitoring fingersticks. Recommended year ophthalmologic and podiatry examinations. Tai Davila MD Hospitalist.
[2018-05-29 12:10] VITALS: BP 122/82; PULSE 80
[2018-05-29] MEDS ORDERED: Influenza Vaccine 60 mcg/0.5 mL SYR (4YR UP) IM ONE (13:17)
== END 2018-05-29 16:39 | disposition home or self-care (01) ==
LOC: ED 21:56 → ERH 23:15 → 2RNO 05-28 00:22
PROVIDERS: ADMIT Hospitalist; ATTEND Internal Medicine
DX: K62.5 Hemorrhage of anus and rectum (principal); E11.65 Type 2 diabetes mellitus with hyperglycemia; E78.5 Hyperlipidemia, unspecified; I10 Essential (primary) hypertension; K57.90 Diverticulosis of intestine, part unspecified, without perforation or abscess without bleeding; K59.00 Constipation, unspecified; K64.9 Unspecified hemorrhoids; Z83.3 Family history of diabetes mellitus; F17.210 Nicotine dependence, cigarettes, uncomplicated; Z91.14 Patient's other noncompliance with medication regimen; Z23 Encounter for immunization
CPT/HCPCS: 36415; 71045; 74177; 80053; 80061; 82607; 82728; 82746; 82803; 82948; 83036; 83540; 83550; 83690; 83735; 84100; 84443; 84484; 85025; 85610; 85730; 86850; 86900; 90471; 90674; 90732; 93005; 96360; 96361; 99285; G0378; J7030; Q9966; Q9967

== ENCOUNTER 2018-09-23 10:24 | Emergency (ER) | payer OTHER ==
[2018-09-23 10:40] VITALS: BMI 23.3
[2018-09-23 10:41] VITALS: BP 125/78; PULSE 81; RESP 18; TEMP 98.3; O2SAT 97
== END 2018-09-23 11:12 | disposition left against medical advice (07) ==
LOC: ED 10:24
DX: Z02.89 Encounter for other administrative examinations (principal); Z00.00 Encounter for general adult medical examination without abnormal findings

== ENCOUNTER 2018-09-23 10:59 | Outpatient (CLI) | payer OTHER | END 2018-09-23 11:00 | disposition home or self-care (01) | LOC: LAB 10:59 ==

== ENCOUNTER 2018-10-24 01:55 | Emergency (ER) | payer OTHER ==
[2018-10-24 02:48] VITALS: RESP 18; BMI 25.6
--- NOTE | 2018-10-24 03:13 | ED PDOC ---
Arrival/HPI <Robby Nicole - Last Filed: 10/24/18 03:53> - General Historian: Patient - History of Present Illness Narrative History of Present Illness (Text): 10/24/18 03:10 CC: diarrhea and headache HPI: 53 yo male w/ PMH of DM2 comes to ED for evaluation of diarrhea and headaches. Patient states the symptoms started on Wednesday after he ate home cooked food and ordered out. Patient states that no one else at home was sick but he is the only who ate the restaurant food. Patient states that yesterday he had multiple episodes of vomiting (6+ episodes). Patient states today he continued to have diarrhea and a few episodes of vomiting. Admits to dry mouth and headaches as well likely due to poor oral intake and dehydrations. Denies fevers, chills, chest pain, sob, constipation or dysuria. Time/Duration: 24 hours Symptom Onset: Sudden Symptom Course: Unchanged Severity Level: 3, 5 Activities at Onset: Eating Context: Sitting <Natalia Nath - Last Filed: 10/24/18 04:29> - General Chief Complaint: GI Problem Time Seen by Provider: 10/24/18 02:03 Past Medical History - Provider Review Nursing Documentation Reviewed: Yes - Infectious Disease Hx of Infectious Diseases: None - Cardiac Hx Cardiac Disorders: Yes Hx Hypertension: Yes - Pulmonary Hx Respiratory Disorders: No - Neurological Hx Neurological Disorder: No - HEENT Hx HEENT Disorder: No - Renal Hx Renal Disorder: No - Endocrine/Metabolic Hx Endocrine Disorders: Yes Hx Diabetes Mellitus Type 2: Yes (niddm) - Hematological/Oncological Hx Blood Disorders: No - Integumentary Hx Dermatological Disorder: No - Musculoskeletal/Rheumatological Hx Musculoskeletal Disorders: No - Gastrointestinal Hx Gastrointestinal Disorders: No - Genitourinary/Gynecological Hx Genitourinary Disorders: No - Psychiatric Hx Psychophysiologic Disorder: No Hx Substance Use: No - Anesthesia Hx Anesthesia: No - Suicidal Assessment Feels Threatened In Home Enviroment: No <Natalia Nath - Last Filed: 10/24/18 04:29> Family/Social History Family/Social History: No Known Family HX Smoking Status: Former Smoker Hx Alcohol Use: No (denies) Hx Substance Use: No Hx Substance Use Treatment: No <Natalia Nath - Last Filed: 10/24/18 04:29> Allergies/Home Meds <Robby Nicole - Last Filed: 10/24/18 03:53> <Natalia Nath - Last Filed: 10/24/18 04:29> Allergies/Adverse Reactions: Allergies No Known Allergies Allergy (Verified 04/19/15 18:30) Review of Systems - Review of Systems Constitutional: Normal. absent: Fatigue Eyes: Normal. absent: Vision Changes, Photophobia ENT: Normal. absent: Hearing Changes, Rhinorrhea Respiratory: Normal. absent: SOB, Cough, Sputum Cardiovascular: Normal. absent: Chest Pain, Palpitations, Edema Gastrointestinal: Diarrhea, Nausea, Vomiting, Appetite Changes. absent: Normal, Abdominal Pain Genitourinary Male: Normal. absent: Dysuria, Frequency Musculoskeletal: Normal. absent: Arthralgias, Back Pain, Neck Pain Skin: Normal. absent: Rash, Pruritis, Skin Lesions Neurological: Normal. absent: Headache, Dizziness, Focal Weakness Endocrine: Normal. absent: Diaphoresis, Polyuria, Polydipsia Psychiatric: Normal. absent: Anxiety, Depression <Natalia Nath - Last Filed: 10/24/18 04:29> Physical Exam Vital Signs Temp Pulse Resp BP Pulse Ox 10/24/18 02:48 98 F 106 H 18 109/69 97 <Robby Nicole - Last Filed: 10/24/18 03:53> Vital Signs Reviewed: Yes Vital Signs Temp Pulse Resp BP Pulse Ox 10/24/18 02:48 98 F 106 H 18 109/69 97 Temperature: Afebrile Blood Pressure: Normal Pulse: Tachycardic Respiratory Rate: Normal Appearance: Positive for: Well-Appearing, Non-Toxic, Comfortable Pain Distress: Mild Mental Status: Positive for: Alert and Oriented X 3 - Systems Exam Head: Present: Atraumatic, Normocephalic Pupils: Present: PERRL Extroacular Muscles: Present: EOMI Conjunctiva: Present: Normal Mouth: Present: Dry Neck: Present: Normal Range of Motion. No: Meningeal Signs, JVD Respiratory/Chest: Present: Clear to Auscultation, Good Air Exchange. No: Respiratory Distress, Accessory Muscle Use Cardiovascular: Present: Normal S1, S2, Tachycardic Abdomen: Present: Normal Bowel Sounds. No: Tenderness, Distention, Peritoneal Signs, Rebound, Guarding Upper Extremity: Present: Normal Inspection. No: Cyanosis, Edema Lower Extremity: Present: Normal Inspection. No: Edema Neurological: Present: GCS=15, CN II-XII Intact, Speech Normal Skin: Present: Warm, Dry, Normal Color. No: Rashes Psychiatric: Present: Alert, Oriented x 3, Normal Insight, Normal Concentration <PortilloNewdez - Last Filed: 10/24/18 04:29> Medical Decision Making ED Course and Treatment: Impression: Pt seen and evaluated with medical reimbursement manager. Aware and agree with HPI, clinical findings, plan, and management. Pt, whose past medical history includes diabetes, presented for nausea, vomiting, diarrhea, and headache. Plan: -- Labs -- IV fluids -- Toradol -- Reassess and disposition - Lab Interpretations Lab Results: Total Bilirubin 0.7 mg/dL (0.2-1.3) 10/24/18 03:15 AST 22 U/L (17-59) 10/24/18 03:15 ALT 18 U/L (7-56) 10/24/18 03:15 Alkaline Phosphatase 88 U/L (38-126) 10/24/18 03:15 Total Protein 7.6 g/dL (5.8-8.3) 10/24/18 03:15 Albumin 4.2 g/dL (3.0-4.8) 10/24/18 03:15 Globulin 3.4 gm/dL 10/24/18 03:15 Albumin/Globulin Ratio 1.2 (1.1-1.8) 10/24/18 03:15 - Medication Orders Current Medication Orders: Sodium Chloride (Sodium Chloride 0.9%) 1,000 mls @ 100 mls/hr IV .Q10H SAIGE Discontinued Medications Ketorolac Tromethamine (Toradol) 30 mg IVP STAT STA Stop: 10/24/18 03:05 <Robby Nicole - Last Filed: 10/24/18 03:53> ED Course and Treatment: 10/24/18 03:15 Impression 53 yo male w/ PMH of DM2 comes to ED for evaluation of diarrhea and headaches. Patient states the symptoms started on Wednesday after he ate home cooked food and ordered out. Plan -CBC -CMP -Toradol -NS -Mag/Phos Prior Visits All prior documentation and lab work reviewed prior to evaluation Progress Notes will reassess patient after blood work blood work resulted all WNL patient clinically with no pain or distress will discharge with instructions to follow up primary medical doctor within a week 10/24/18 04:23 Re-evaluation Time: 04:24 Reassessment Condition: Re-examined, Improved - Lab Interpretations I have reviewed the lab results: Yes Interpretation: No clinic. lab abnormalty - Medication Orders Current Medication Orders: Sodium Chloride (Sodium Chloride 0.9%) 1,000 mls @ 100 mls/hr IV .Q10H SAIGE Discontinued Medications Ketorolac Tromethamine (Toradol) 30 mg IVP STAT STA Stop: 10/24/18 03:05 <Natalia Nath - Last Filed: 10/24/18 04:29> - PA / MUSHROOM GROWING SUPERVISOR / Resident Statement ANYA has reviewed & agrees with the documentation as recorded. ANYA has examined the patient and agrees with the treatment plan. <Robby Nicole - Last Filed: 10/24/18 03:53> Disposition/Present on Arrival <Robby Nicole - Last Filed: 10/24/18 03:53> - Present on Arrival Any Indicators Present on Arrival: No History of DVT/PE: No History of Uncontrolled Diabetes: No Urinary Catheter: No History of Decub. Ulcer: No History Surgical Site Infection Following: None - Disposition Have Diagnosis and Disposition been Completed?: Yes Disposition Time: 04:24 Patient Plan: Discharge <Natalia Nath - Last Filed: 10/24/18 04:29> - Disposition Diagnosis: Viral gastroenteritis Condition: GOOD Additional Instructions: 1. Please followup with primary medical doctor within 5-7 days of discharge from hospital 2. If symptoms worsen or recur please return to hospital. Forms: [email or web address] (Cuban)
[2018-10-24] MEDS ORDERED: Sodium Chloride 0.9% 1,000 ML IV SCH (03:15)
[2018-10-24 03:30] LABS: ALB/GLOB RATIO 1.2 (1.1-1.8); ALBUMIN 4.2 g/dL (3.0-4.8); ALT/SGPT 18 U/L (7-56); AST/SGOT 22 U/L (17-59); BLOOD UREA NITROGEN 13 mg/dL (7-21); CALCIUM 8.5 mg/dL (8.4-10.5); GFR NON-AFRICAN AMERICAN > 60
[2018-10-24 03:47] LABS: BASO # 0.01 K/mm3 (0.0-2.0); BASO % 0.1 % (0.0-3.0); EOS % 0.1 % (1.5-5.0); HEMOGLOBIN 13.6 g/dL (14.0-18.0); LYMPH # 0.7 (1.2-3.4); LYMPH % 6.5 % (22.0-35.0); MEAN CELL VOLUME 82.2 fl (80.0-105.0); MEAN CORPUSCULAR HEMOGLOBIN 29.2 pg (25.0-35.0); MEAN CORPUSCULAR HGB CONC 35.5 g/dl (31.0-37.0); MEAN PLATELET VOLUME 10.8 fl (7.0-11.0); MONO # 0.5 (0.1-0.6); RBC 4.66 10^6/uL (3.5-6.1); RED CELL DISTRIBUTION WIDTH 12.3 % (11.5-14.5); WHITE BLOOD COUNT 10.7 10^3/uL (4.5-11.0)
[2018-10-24] MEDS ORDERED: Magnesium Oxide 400 mg Tab UD PO STA (04:04)
[2018-10-24 04:38] VITALS: BP 111/70; PULSE 95; TEMP 97.8; O2SAT 99
== END 2018-10-24 04:38 | disposition home or self-care (01) ==
LOC: ED 01:55
DX: A08.4 Viral intestinal infection, unspecified (principal); I10 Essential (primary) hypertension; E11.9 Type 2 diabetes mellitus without complications; Z87.891 Personal history of nicotine dependence
CPT/HCPCS: 80053; 82948; 83735; 84100; 85025; 96374; 99283; J1885; J7030